=== PATIENT | female | born 1955 | race Caucasian/White ===

== ENCOUNTER 2017-03-08 12:42 | Emergency (ER) | payer OTHER ==
[2017-03-08] MEDS ORDERED: Sodium Chloride 0.9% 10 ML Syringe FLUSH PRN (13:00)
--- NOTE | 2017-03-08 14:05 | EDM.PDOC ---
ED HPI GENERAL MEDICAL PROBLEM - General Chief Complaint: Chest Pain Stated Complaint: CHEST PAIN Time Seen by Provider: 03/08/17 12:54 Source of Information: Reports: Patient History Limitations: Reports: No Limitations - History of Present Illness INITIAL COMMENTS - FREE TEXT/NARRATIVE: The patient presents with left sided chest pain. This started on Sunday. The pain has been coming and going since the. It is sharp and it is made worse with deep breathing. She has no fever, cough, congestion, or runny nose. She has some shortness of breath at times. She has no abdominal pain, nausea or vomiting. She has a history of A-fib and she has a pacemaker. She went to the [place] [facility] and she was sent here for further evaluation. Onset: Gradual Duration: Day(s): (5) Location: Reports: Chest Quality: Reports: Sharp Severity: Moderate Improves with: Reports: None Worsens with: Reports: Breathing Associated Symptoms: Reports: Chest Pain. Denies: Cough, Fever/Chills, Nausea/ Vomiting, Shortness of Breath Chest Pain Score (Numeric/FACES): 9 - Related Data Allergies Allergy/AdvReac Type Severity Reaction Status Date / Time amoxicillin [Amoxicillin] Allergy Rash Verified 08/03/13 13:27 amoxicillin trihydrate Allergy Rash Verified 08/03/13 13:27 [From Augmentin] indomethacin Allergy Indigestion Verified 08/03/13 13:27 nabumetone [From Relafen] Allergy Cannot Verified 08/03/13 13:27 Remember potassium clavulanate Allergy Rash Verified 08/03/13 13:27 [From Augmentin] Sulfa (Sulfonamide Allergy Cannot Verified 08/03/13 13:27 Antibiotics) Remember derma tape/patches Allergy Cannot Uncoded 08/03/13 13:27 Remember Home Meds: Home Meds Esomeprazole [NexIUM] 40 mg PO DAILY 08/03/13 [History] Levothyroxine [Synthroid] 7.5 mcg PO DAILY 08/03/13 [History] Simvastatin [Zocor] 20 mg PO BEDTIME 08/03/13 [History] Venlafaxine [Effexor XR 24 Hr] 75 mg PO DAILY 08/03/13 [History] Cetirizine [ZyrTEC] 10 mg PO DAILY 03/08/17 [History] Cholecalciferol (Vitamin D3) [Vitamin D3] 1 tab PO DAILY 03/08/17 [History] Metoprolol Succinate 50 mg PO DAILY 03/08/17 [History] Mirtazapine 15 mg PO BEDTIME 03/08/17 [History] Mirtazapine 15 mg PO BEDTIME 03/08/17 [History] Rivaroxaban [Xarelto] 20 mg PO DAILY 03/08/17 [History] Topiramate 100 mg PO BID 03/08/17 [History] Venlafaxine [Effexor XR] 150 mg PO ACBREAKFAST 03/08/17 [History] Social & Family History - Family History Family Medical History: Noncontributory - Tobacco Use Smoking Status *Q: Never Smoker Second Hand Smoke Exposure: No - Caffeine Use Caffeine Use: Reports: None - Alcohol Use Days Per Week of Alcohol Use: 0 - Recreational Drug Use Recreational Drug Use: No ED ROS GENERAL - Review of Systems Review Of Systems: See Below Constitutional: Reports: No Symptoms HEENT: Reports: No Symptoms Respiratory: Reports: No Symptoms Cardiovascular: Reports: No Symptoms Endocrine: Reports: No Symptoms GI/Abdominal: Reports: No Symptoms : Reports: No Symptoms Musculoskeletal: Reports: No Symptoms Skin: Reports: No Symptoms ED EXAM, GENERAL - Physical Exam Exam: See Below Exam Limited By: No Limitations General Appearance: Alert, No Apparent Distress Ears: Normal External Exam Nose: Normal Inspection Head: Atraumatic, Normocephalic Neck: Normal Inspection Respiratory/Chest: No Respiratory Distress, Lungs Clear, Normal Breath Sounds Cardiovascular: Regular Rate, Rhythm, No Edema, No Murmur, Other (Pain upon palpation to the left and right chest near both shoulders.) GI/Abdominal: Soft, Non-Tender, No Organomegaly, No Mass Back Exam: Normal Inspection Extremities: Normal Inspection Neurological: Alert, Oriented, No Motor/Sensory Deficits EKG INTERPRETATION EKG Date: 03/08/17 Time: 12:56 Rhythm: Other (Paced rhythm) Rate (Beats/Min): 74 Course - Vital Signs Last Recorded V/S: Last Vital Signs Temp 97.3 F 03/08/17 12:55 Pulse 76 03/08/17 12:55 Resp 16 03/08/17 12:55 BP 130/89 03/08/17 12:55 Pulse Ox 100 03/08/17 12:55 - Orders/Labs/Meds Orders: Active Orders 24 hr Category Date Time Status Cardiac Monitoring [RC] . DIRECTED Care 03/08/17 13:00 Active EKG Documentation Completion [RC] STAT Care 03/08/17 13:00 Active Oxygen Therapy [RC] PRN Care 03/08/17 13:00 Active Peripheral IV Care [RC] . DIRECTED Care 03/08/17 13:00 Active Chest 1V Frontal [CR] Stat Exams 03/08/17 13:00 Taken Sodium Chloride 0.9% [Saline Flush] Med 03/08/17 13:00 Active 10 ml FLUSH ASDIRECTED PRN Peripheral IV Insertion Adult [OM.PC] Stat Oth 03/08/17 13:00 Ordered Medication Orders Sodium Chloride (Saline Flush) 10 ml FLUSH ASDIRECTED PRN PRN Reason: Keep Vein Open Last Admin: 03/08/17 13:18 Dose: 10 ml Labs: Laboratory Tests 03/08/17 03/08/17 03/08/17 Range/Units 13:05 13:05 13:05 WBC 9.84 (3.98-10.04) K/mm3 RBC 5.20 (3.98-5.22) M/mm3 Hgb 15.5 (11.2-15.7) gm/L Hct 46.9 H (34.1-44.9) % MCV 90.2 (79.4-94.8) fl MCH 29.8 (25.6-32.2) pg MCHC 33.0 (32.2-35.5) g/dl RDW Std Deviation 42.8 (36.4-46.3) fL Plt Count 375 H (182-369) K/mm3 MPV 8.8 L (9.4-12.3) fl Neut % (Auto) 60.7 (34.0-71.1) % Lymph % (Auto) 28.5 (19.3-51.7) % [place] % (Auto) 7.7 (4.7-12.5) % Eos % (Auto) 2.3 (0.7-5.8) Baso % (Auto) 0.3 (0.1-1.2) % Neut # (Auto) 5.97 (1.56-6.13) K/mm3 Lymph # (Auto) 2.80 (1.18-3.74) K/mm3 [place] # (Auto) 0.76 H (0.24-0.36) K/mm3 Eos # (Auto) 0.23 (0.04-0.36) K/mm3 Baso # (Auto) 0.03 (0.01-0.08) K/mm3 D-Dimer, Quantitative < 0.19 L (0.19-0.59) mg/L Sodium 144 (136-145) mEq/L Potassium 3.7 (3.5-5.1) mEq/L Chloride 111 H (98-107) mEq/L Carbon Dioxide 20 L (21-32) mEq/L Anion Gap 16.7 H (5-15) BUN 8 (7-18) mg/dL Creatinine 1.2 H (0.55-1.02) mg/dL Est Cr Clr Drug Dosing TNP Estimated GFR (MDRD) 46 (>60) mL/min BUN/Creatinine Ratio 6.7 L (14-18) Glucose 95 (80-115) mg/dL Calcium 9.3 (8.5-10.1) mg/dL Total Bilirubin 0.3 (0.2-1.0) mg/dL AST 26 (15-37) U/L ALT 41 (14-59) U/L Alkaline Phosphatase 76 (46-116) U/L Troponin I < 0.017 (0.00-0.056) ng/mL Total Protein 7.0 (6.4-8.2) g/dl Albumin 3.6 (3.4-5.0) g/dl Globulin 3.4 gm/dL Albumin/Globulin Ratio 1.1 (1-2) Meds: Medications Generic Name Dose Route Start Last Admin Trade Name Freq PRN Reason Stop Dose Admin Sodium Chloride 10 ml 03/08/17 13:00 03/08/17 13:18 Saline Flush FLUSH 10 ml ASDIRECTED PRN Administration Keep Vein Open - Re-Assessments/Exams Free Text/Narrative Re-Assessment/Exam: 03/08/17 14:21 I ordered an IV saline lock, EKG, CXR and labs. Her EKG is paced. Her CXR looks good. Her CBC and CMP look good. Her troponin is negative. This appears to be chest wall pain. She was shoveling when this started a few days ago. Departure - Departure Time of Disposition: 14:25 Disposition: Home, Self-Care 01 Condition: Good Clinical Impression: Chest wall pain Referrals: Marissa Madison DO [Primary Care Provider] - 1 Week Forms: ED Department Discharge Additional Instructions: Take your medicine as prescribed. Take motrin or aleve for pain. Please return if you are worse. - My Orders Last 24 Hours: My Active Orders 03/08/17 13:00 Cardiac Monitoring [RC] . DIRECTED EKG Documentation Completion [RC] STAT Oxygen Therapy [RC] PRN Peripheral IV Care [RC] . DIRECTED Chest 1V Frontal [CR] Stat Sodium Chloride 0.9% [Saline Flush] 10 ml FLUSH ASDIRECTED PRN Peripheral IV Insertion Adult [OM.PC] Stat - Assessment/Plan Last 24 Hours: My Active Orders 03/08/17 13:00 Cardiac Monitoring [RC] . DIRECTED EKG Documentation Completion [RC] STAT Oxygen Therapy [RC] PRN Peripheral IV Care [RC] . DIRECTED Chest 1V Frontal [CR] Stat Sodium Chloride 0.9% [Saline Flush] 10 ml FLUSH ASDIRECTED PRN Peripheral IV Insertion Adult [OM.PC] Stat
--- NOTE | 2017-03-08 16:48 | CR ---
Chest: Portable view of the chest was obtained. Comparison: No prior chest x-ray. Heart size and mediastinum are normal. Lungs are clear. Pacemaker is noted. Bony structures show degenerative endplate spurring within the spine. Impression: 1. Nothing acute is identified on portable chest x-ray. Diagnostic code #2
== END 2017-03-08 14:30 | disposition home or self-care (01) ==
LOC: JD.ED 12:42
DX: R07.89 Other chest pain (principal); Z88.1 Allergy status to other antibiotic agents; Z88.8 Allergy status to other drugs, medicaments and biological substances; Z88.2 Allergy status to sulfonamides; Z79.899 Other long term (current) drug therapy
CPT/HCPCS: 36415; 71045; 80053; 84484; 85025; 85379; 93005; 99285; J7050; 93010; 99284-25

== ENCOUNTER 2017-06-15 21:28 | Emergency (ER) | payer OTHER, MEDICAID ==
--- NOTE | 2017-06-15 22:13 | EDM.PDOC ---
ED HPI GENERAL MEDICAL PROBLEM - General Chief Complaint: ENT Problem Stated Complaint: COLD/CONGESTION/RIGHT EAR BLEEDING Time Seen by Provider: 06/15/17 21:47 Source of Information: Reports: Patient History Limitations: Reports: No Limitations - History of Present Illness INITIAL COMMENTS - FREE TEXT/NARRATIVE: This is a 61-year-old female. She wears hearing aids but she has excellent communication without them. She states for the last couple of weeks she's been having a sore throat and sinus drainage and congestion and a dry cough. She has been hoarse for at least a week. She says that her ears are draining as well she thinks are some blood draining out of her right ear. She has not been wearing her hearing aid for the last 2 days due to the ear pain and drainage. She states she had these similar symptoms about 6 months ago. She does have a history of frequent strep infections. She denies any fever or chills she denies any nausea or vomiting. She has been taking some Robitussin [id number] to help with her cough. Right Ear Pain Score (Numeric/FACES): 4 - Related Data Allergies Allergy/AdvReac Type Severity Reaction Status Date / Time amoxicillin [Amoxicillin] Allergy Rash Verified 06/15/17 21:42 amoxicillin trihydrate Allergy Rash Verified 06/15/17 21:42 [From Augmentin] indomethacin Allergy Indigestion Verified 06/15/17 21:42 nabumetone [From Relafen] Allergy Cannot Verified 06/15/17 21:42 Remember potassium clavulanate Allergy Rash Verified 06/15/17 21:42 [From Augmentin] Sulfa (Sulfonamide Allergy Cannot Verified 06/15/17 21:42 Antibiotics) Remember derma tape/patches Allergy Cannot Uncoded 08/03/13 13:27 Remember Home Meds: Home Meds Esomeprazole [NexIUM] 40 mg PO DAILY 08/03/13 [History] Levothyroxine [Synthroid] 150 mcg PO DAILY 08/03/13 [History] Simvastatin [Zocor] 20 mg PO BEDTIME 08/03/13 [History] Venlafaxine [Effexor XR 24 Hr] 75 mg PO DAILY 08/03/13 [History] Cetirizine [ZyrTEC] 10 mg PO DAILY 03/08/17 [History] Cholecalciferol (Vitamin D3) [Vitamin D3] 1 tab PO DAILY 03/08/17 [History] Metoprolol Succinate 50 mg PO DAILY 03/08/17 [History] Mirtazapine 15 mg PO BEDTIME 03/08/17 [History] Mirtazapine 15 mg PO BEDTIME 03/08/17 [History] Rivaroxaban [Xarelto] 20 mg PO DAILY 03/08/17 [History] Topiramate 100 mg PO BID 03/08/17 [History] Venlafaxine [Effexor XR] 150 mg PO ACBREAKFAST 03/08/17 [History] Azithromycin [IJD: Azithromycin] 250 mg PO QAM #6 tab 06/15/17 [Rx] Codeine/guaiFENesin [guaiFENesin-Codeine Syrup] 10 ml PO Q8H PRN #120 ml [Rx] Hydrocort/Neomycin/Polymyxin B [Egdgywgf-Lcysewvlk-KR Otic Susp] 10 ml EARBOTH TID #1 bottle 06/15/17 [Rx] Past Medical History HEENT History: Reports: Impaired Vision Cardiovascular History: Reports: High Cholesterol, Hypertension, Pacemaker Gastrointestinal History: Reports: GERD Neurological History: Reports: Other (See Below) Other Neuro History: fibromalgia Endocrine/Metabolic History: Reports: Hypothyroidism - Past Surgical History GI Surgical History: Reports: Cholecystectomy Female Surgical History: Reports: Hysterectomy Social & Family History - Family History Family Medical History: Noncontributory - Tobacco Use Smoking Status *Q: Never Smoker Second Hand Smoke Exposure: No - Caffeine Use Caffeine Use: Reports: Coffee - Alcohol Use Days Per Week of Alcohol Use: 0 - Recreational Drug Use Recreational Drug Use: No ED ROS ENT - Review of Systems Review Of Systems: See Below Constitutional: Denies: Fever, Chills HEENT: Reports: Ear Discharge, Ear Pain, Throat Pain, Other (She uses hearing aids) Respiratory: Reports: Cough. Denies: Shortness of Breath, Wheezing, Sputum Cardiovascular: Reports: No Symptoms Endocrine: Reports: No Symptoms GI/Abdominal: Denies: Abdominal Pain, Diarrhea, Nausea, Vomiting : Reports: No Symptoms Musculoskeletal: Reports: No Symptoms Skin: Reports: No Symptoms Neurological: Reports: No Symptoms Psychiatric: Reports: No Symptoms Hematologic/Lymphatic: Reports: No Symptoms ED EXAM, ENT - Physical Exam Exam: See Below Exam Limited By: No Limitations General Appearance: Alert, WD/WN, No Apparent Distress Eye Exam: Bilateral Eye: Normal Inspection Ears: Normal External Exam, Hearing Loss, Other (The right ear canal appears to be mildly inflamed and may be some mild drainage but no blood, the left TM is dull and slightly bulging and the canal appears to be clear with no drainage.). No: Mastoid Swelling, Mastoid Tenderness Nose: Clear Rhinorrhea Mouth/Throat: Normal Inspection, Normal Teeth, Tonsillar Erythema, Other (She has tacky mucous membranes.) Head: Normocephalic Neck: Normal Inspection, Supple. No: Lymphadenopathy (L), Lymphadenopathy (R) Respiratory/Chest: No Respiratory Distress, Lungs Clear, Normal Breath Sounds Cardiovascular: Regular Rate, Rhythm, No Murmur GI/Abdominal: Soft Back: Full Range of Motion Extremities: Normal Inspection, Normal Range of Motion Neurological: Alert, Oriented Psychiatric: Normal Affect, Normal Mood Skin: Warm, Dry Course - Vital Signs Last Recorded V/S: Last Vital Signs Temp 98.2 F 06/15/17 21:39 Pulse 95 06/15/17 21:39 Resp 18 06/15/17 21:39 BP 150/85 H 06/15/17 21:39 Pulse Ox 95 06/15/17 21:39 - Orders/Labs/Meds Orders: Active Orders 24 hr Category Date Time Status CULTURE STREP A CONFIRMATION [RM] Stat Lab 06/15/17 22:02 Results Rapid Strep w/culture conf [STREP SCRN A RAPID W CULT Lab 06/15/17 22:02 Ordered CONF] [RM] Stat cefTRIAXone 1 GM with Lidocaine 1% 2.1 ML IM Med 06/15/17 23:15 Ordered cefTRIAXone [Rocephin] 1 gm Lidocaine 1% [Xylocaine 1%] 2.1 ml IM Q24H - Re-Assessments/Exams Free Text/Narrative Re-Assessment/Exam: 06/15/17 23:10 I spoke to the patient regarding the negative strep screen. We talked at length regarding drinking lots of water and fluids and avoiding sugar with a sore throat. We will give her a Rocephin shot here in the ER and then I'll put her on some antibiotics and eardrops as well as a better cough syrup. She is to follow-up with her family doctor later this week and she understands this. Departure - Departure Time of Disposition: 23:11 Disposition: Home, Self-Care 01 Condition: Fair Clinical Impression: Acute laryngitis Upper respiratory infection Qualifiers: URI type: unspecified URI Qualified Code(s): J06.9 - Acute upper respiratory infection, unspecified Acute bronchitis Qualifiers: Bronchitis organism: unspecified organism Qualified Code(s): J20.9 - Acute bronchitis, unspecified Bilateral serous otitis media Qualifiers: Chronicity: acute Recurrence: not specified as recurrent Qualified Code(s): H65.03 - Acute serous otitis media, bilateral Acute pharyngitis Qualifiers: Pharyngitis/tonsillitis etiology: unspecified etiology Qualified Code(s): J02.9 - Acute pharyngitis, unspecified - Discharge Information Prescriptions: Azithromycin [IJD: Azithromycin] 250 mg PO QAM #6 tab Codeine/guaiFENesin [guaiFENesin-Codeine Syrup] 10 ml PO Q8H PRN #120 ml PRN Reason: Cough Hydrocort/Neomycin/Polymyxin B [Kwsrhjuo-Vcjfkksex-DD Otic Susp] 10 ml EARBOTH TID #1 bottle Referrals: Marissa Madison DO [Primary Care Provider] - Forms: ED Department Discharge Additional Instructions: Start the antibiotics Sunday and taken faithfully daily, use the cough syrup as needed to help to sleep at night time, use the eardrops as prescribed, avoid wearing ear hearing aids for the next 4-5 days or until your ears start feeling better, follow-up your family doctor later this week for recheck, drink lots of water and avoid sugar, return to the ER if needed - My Orders Last 24 Hours: My Active Orders 06/15/17 22:02 CULTURE STREP A CONFIRMATION [] Stat Rapid Strep w/culture conf [STREP SCRN A RAPID W CULT CONF] [] Stat 06/15/17 23:15 cefTRIAXone 1 GM with Lidocaine 1% 2.1 ML IM cefTRIAXone [Rocephin] 1 gm Lidocaine 1% [Xylocaine 1%] 2.1 ml IM Q24H - Assessment/Plan Last 24 Hours: My Active Orders 06/15/17 22:02 CULTURE STREP A CONFIRMATION [] Stat Rapid Strep w/culture conf [STREP SCRN A RAPID W CULT CONF] [] Stat 06/15/17 23:15 cefTRIAXone 1 GM with Lidocaine 1% 2.1 ML IM cefTRIAXone [Rocephin] 1 gm Lidocaine 1% [Xylocaine 1%] 2.1 ml IM Q24H
[2017-06-15] MEDS ORDERED: cefTRIAXone 1 GM, Lidocaine 1% 2.1 ML IM SCH ×2 (23:15)
== END 2017-06-15 23:56 | disposition home or self-care (01) ==
LOC: JD.ED 21:28
DX: J20.9 Acute bronchitis, unspecified (principal); H65.03 Acute serous otitis media, bilateral; J04.0 Acute laryngitis; J02.9 Acute pharyngitis, unspecified; J06.9 Acute upper respiratory infection, unspecified; E78.00 Pure hypercholesterolemia, unspecified; I10 Essential (primary) hypertension; E03.9 Hypothyroidism, unspecified; Z88.1 Allergy status to other antibiotic agents; Z88.2 Allergy status to sulfonamides; Z88.8 Allergy status to other drugs, medicaments and biological substances; Z79.899 Other long term (current) drug therapy
CPT/HCPCS: 87081; 87430; 99283; J0696; 96372

== ENCOUNTER 2020-08-20 19:28 | Emergency (ER) | payer MEDICAID, OTHER ==
--- NOTE | 2020-08-20 20:08 | EDM.PDOC ---
ED HPI GENERAL MEDICAL PROBLEM - General Chief Complaint: Skin Complaint Stated Complaint: CHECK BREAST BIOPSY INCISION Time Seen by Provider: 08/20/20 19:40 Source of Information: Reports: Patient History Limitations: Reports: No Limitations - History of Present Illness INITIAL COMMENTS - FREE TEXT/NARRATIVE: Ms. Davis is a very pleasant 64-year-old woman who now presents to the ED with a concern about her left breast following 2 biopsies performed yesterday, , 08/19/2020, at [facility], following an abnormal ultrasound. The patient is on Xarelto for paroxysmal atrial fibrillation. Her biopsy wound was covered with Steri-Strips and Tegaderm. The patient states that she slept most of the day today, then took a shower this evening. She states that she patted her left breast dry, and noticed some blood on the towel. She also noticed that her left breast appeared to be mildly puffy in the mirror. She denies significant pain. No recent fever. The patient states that she was given postprocedure discharge instructions, however, it is unclear if she has read them, and she did not bring them with her tonight. She states that she will be contacted this coming 08/24/2020, with instructions for follow-up. Here in the ED, the patient's initial BP is found to be mildly elevated at 144/81, otherwise, she is hemodynamically stable, afebrile, saturating 97% on room air. She appears to be anxious and somewhat overwhelmed, although in no acute distress. Other than her left breast tissue, the patient denies having a recent fever, chills, sore throat, ear pain, nasal or sinus congestion, cough, dyspnea, chest pain, palpitations, nausea, vomiting, constipation, diarrhea, abdominal pain, urinary symptoms, recent weight gain or weight loss, recent bloody bowel movements or black bowel movements, recent joint aches, headaches, or rashes. The patient's PCP is Dr. Linda Katz at the [facility]. 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 Her counselor is Veronica King. Left Breast Pain Score (Numeric/FACES): 8 - Related Data Allergies Allergy/AdvReac Type Severity Reaction Status Date / Time amoxicillin [Amoxicillin] Allergy Rash Verified 08/20/20 19:41 amoxicillin trihydrate Allergy Rash Verified 08/20/20 19:41 [From Augmentin] indomethacin Allergy Indigestion Verified 08/20/20 19:41 nabumetone [From Relafen] Allergy Cannot Verified 08/20/20 19:41 Remember potassium clavulanate Allergy Rash Verified 08/20/20 19:41 [From Augmentin] Sulfa (Sulfonamide Allergy Cannot Verified 08/20/20 19:41 Antibiotics) Remember derma tape/patches Allergy Cannot Uncoded 08/20/20 19:41 Remember Home Meds: Home Meds Esomeprazole [NexIUM] 40 mg PO DAILY 08/03/13 [History] Levothyroxine [Synthroid] 150 mcg PO DAILY 08/03/13 [History] Simvastatin [Zocor] 20 mg PO BEDTIME 08/03/13 [History] Venlafaxine [Effexor XR 24 Hr] 75 mg PO DAILY 08/03/13 [History] Cetirizine [ZyrTEC] 10 mg PO DAILY 03/08/17 [History] Cholecalciferol (Vitamin D3) [Vitamin D3] 1 tab PO DAILY 03/08/17 [History] Metoprolol Succinate 50 mg PO DAILY 03/08/17 [History] Mirtazapine 15 mg PO BEDTIME 03/08/17 [History] Mirtazapine 15 mg PO BEDTIME 03/08/17 [History] Rivaroxaban [Xarelto] 20 mg PO DAILY 03/08/17 [History] Topiramate 100 mg PO BID 03/08/17 [History] Venlafaxine [Effexor XR] 150 mg PO ACBREAKFAST 03/08/17 [History] Azithromycin [IJD: Azithromycin] 250 mg PO QAM #6 tab 06/15/17 [Rx] Codeine/guaiFENesin [guaiFENesin-Codeine Syrup] 10 ml PO Q8H PRN #120 ml 06/15/17 [Rx] Hydrocort/Neomycin/Polymyxin B [Jcggetwg-Gozvtzzwg-AH Otic Susp] 10 ml EARBOTH TID #1 bottle 06/15/17 [Rx] Past Medical History HEENT History: Reports: Allergic Rhinitis, Impaired Vision (wears glasses) Cardiovascular History: Reports: Afib (paroxysmal), High Cholesterol, Hypertension Gastrointestinal History: Reports: GERD Psychiatric History: Reports: Depression, Other (See Below) (Fibromyalgia) Endocrine/Metabolic History: Reports: Hypothyroidism, Obesity/BMI 30+ - Infectious Disease History Infectious Disease History: Reports: Chicken Pox, Measles - Past Surgical History HEENT Surgical History: Reports: Adenoidectomy, Oral Surgery (dental extractions) Cardiovascular Surgical History: Reports: Pacer GI Surgical History: Reports: Cholecystectomy (1995), Other (See Below) (Exploratory laparotomy) Female Surgical History: Reports: Hysterectomy (complete) Musculoskeletal Surgical History: Reports: Arthroscopic Knee (right, x 3) Oncologic Surgical History: Reports: Biopsy of Breast (left, 08/19/2020) Social & Family History - Tobacco Use Tobacco Use Status *Q: Never Tobacco User - Caffeine Use Caffeine Use: Reports: Coffee - Alcohol Use Alcohol Use History: Yes Alcohol Use Frequency: Rarely - Recreational Drug Use Recreational Drug Use: Yes Drug Use in Last 12 Months: No Recreational Drug Type: Reports: Marijuana/Hashish (last ate 1977) - Living Situation & Occupation Living situation: Reports: , Alone Occupation: Unemployed ED ROS GENERAL - Review of Systems Review Of Systems: Comprehensive ROS is negative, except as noted in HPI. ED EXAM, SKIN/RASH Exam: See Below Exam Limited By: No Limitations General Appearance: Alert, WD/WN, Anxious Respiratory/Chest: Other (There is a square piece of Tegaderm overlying a star shaped arrangement of Steri-Strips to the inferior aspect of the left breast, about a centimeter or 2 to the left of midline. There is a small amount of dark dried blood in the center of the Steri-Strips. No erythema or swelling underneath the T) Course - Vital Signs Last Recorded V/S: Last Vital Signs Temp 36.1 C 08/20/20 19:35 Pulse 65 08/20/20 19:35 Resp 20 08/20/20 19:35 BP 144/81 H 08/20/20 19:35 Pulse Ox 97 08/20/20 19:35 - Re-Assessments/Exams Free Text/Narrative Re-Assessment/Exam: 08/20/20 20:05 As above, the patient underwent 2 left breast biopsies yesterday, while she is on Xarelto. She showered this evening, then noticed some blood on the towel as she dabbed her left breast dry. She became frightened because she felt that the left breast looked to be somewhat swollen. On examination, there is a single piece of Tegaderm overlying a star pattern of Steri-Strips just lateral to the inferior aspect of her left breast, with a small amount of dark dried blood in the center of the Steri-Strips. No other visible blood elsewhere. No erythema or swelling to the skin under the Tegaderm. There is ecchymosis to the midline inferior aspect of the breast, at the area of greatest dependency. I explained to the patient that the ecchymosis is likely due to extravasation of blood from the biopsy, and that she would expect to have a bit more bleeding than someone not on an anticoagulant. I explained that the blood in the tissue can cause some local swelling, which is normal, and nothing to be afraid of. Going forward, I recommended that she simply follow her discharge instructions. Departure - Departure Time of Disposition: 20:08 Disposition: Home, Self-Care 01 Condition: Good Clinical Impression: S/P breast biopsy, left - Discharge Information *PRESCRIPTION DRUG MONITORING PROGRAM REVIEWED*: Not Applicable *COPY OF PRESCRIPTION DRUG MONITORING REPORT IN PATIENT IAN: Not Applicable Instructions: Breast Biopsy Referrals: Linda Katz MD [Primary Care Provider] - Forms: ED Department Discharge Additional Instructions: You were seen in the emergency room after discovering some blood on the towel following a left breast biopsy yesterday, along with concern about some swelling of the left breast. On examination, the Steri-Strips and Tegaderm appear to be in proper position, with no concern of bleeding. As explained, you would expect to have an increased amount of blood in the tissue from the biopsy since you are on the blood thinner Xarelto, and blood in the tissue can cause some swelling, therefore local puffiness of your left breast is to be expected. Going forward, we recommend that you simply follow your post-biopsy discharge instructions. If any other problems, please do not hesitate to return to the ER. Sepsis Event Note (ED) - Evaluation Sepsis Screening Result: No Definite Risk - Focused Exam Vital Signs: Vital Signs Temp Pulse Resp BP Pulse Ox 08/20/20 19:35 36.1 C 65 20 144/81 H 97
== END 2020-08-20 20:28 | disposition home or self-care (01) ==
LOC: JD.ED 19:28
DX: N64.9 Disorder of breast, unspecified (principal); Z98.890 Other specified postprocedural states
CPT/HCPCS: 99282; 99283

== ENCOUNTER 2020-09-16 09:37 | Emergency (ER) | payer MEDICAID, OTHER ==
[2020-09-16] MEDS ORDERED: Sodium Chloride 0.9% 10 ML Syringe FLUSH PRN (09:56)
--- NOTE | 2020-09-16 10:23 | EDM.PDOC ---
ED HPI GENERAL MEDICAL PROBLEM - General Chief Complaint: Trauma Stated Complaint: FALL/MULTIPLE INJURIES Time Seen by Provider: 09/16/20 09:49 Source of Information: Reports: Patient History Limitations: Reports: No Limitations - History of Present Illness INITIAL COMMENTS - FREE TEXT/NARRATIVE: The patient presents after a fall. She was in her bathtub this morning and she slipped and fell. She did hit her head and hurt her neck. She is on Xarelto. She had no LOC. She has a headache, neck pain, chest pain, left forearm pain, right upper arm pain, right hip pain, right lower leg pain and left thigh pain. She has no abdominal pain, nausea or vomiting. Onset: Sudden Duration: Minutes: Location: Reports: Head, Neck, Chest, Upper Extremity, Left, Upper Extremity, Right, Lower Extremity, Left, Lower Extremity, Right Quality: Reports: Sharp Severity: Moderate Improves with: Reports: None Worsens with: Reports: None Associated Symptoms: Reports: Chest Pain, Headaches. Denies: Cough, Fever/Chills, Nausea/Vomiting, Shortness of Breath Left Face/Facial Pain Score (Numeric/FACES): 7 - Related Data Allergies Allergy/AdvReac Type Severity Reaction Status Date / Time amoxicillin [Amoxicillin] Allergy Rash Verified 09/16/20 09:51 amoxicillin trihydrate Allergy Rash Verified 09/16/20 09:51 [From Augmentin] nabumetone [From Relafen] Allergy Cannot Verified 09/16/20 09:51 Remember potassium clavulanate Allergy Rash Verified 09/16/20 09:51 [From Augmentin] Sulfa (Sulfonamide Allergy Cannot Verified 09/16/20 09:51 Antibiotics) Remember indomethacin AdvReac Indigestion Verified 09/16/20 09:51 derma tape/patches Allergy Cannot Uncoded 08/20/20 19:41 Remember Home Meds: Home Meds Esomeprazole [NexIUM] 20 mg PO DAILY 08/03/13 [History] Levothyroxine [Synthroid] 100 mcg PO DAILY 08/03/13 [History] Simvastatin [Zocor] 20 mg PO BEDTIME 08/03/13 [History] Cetirizine [ZyrTEC] 10 mg PO DAILY 03/08/17 [History] Cholecalciferol (Vitamin D3) [Vitamin D3] 0.5 tab PO DAILY 03/08/17 [History] Metoprolol Succinate 50 mg PO DAILY 03/08/17 [History] Rivaroxaban [Xarelto] 20 mg PO DAILY 03/08/17 [History] Topiramate 50 mg PO BID 03/08/17 [History] Acetaminophen [Tylenol] 325 mg PO DAILY 09/16/20 [History] DULoxetine HCl [Cymbalta] 30 mg PO BEDTIME 09/16/20 [History] Diclofenac Sodium [Diclo Gel] 2 gm TP QID PRN 09/16/20 [History] Eszopiclone 2 mg PO BEDTIME 09/16/20 [History] traMADol [Ultram] 50 - 100 mg PO Q6H PRN #20 tab 09/16/20 [Rx] Past Medical History HEENT History: Reports: Allergic Rhinitis, Impaired Vision Other HEENT History: wears eyeglasses. 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: Neurological History: Reports: Migraines, Other (See Below) Other Neuro History: fibromalgia Psychiatric History: Reports: Depression, Other (See Below) Endocrine/Metabolic History: Reports: Hypothyroidism, Obesity/BMI 30+ - Infectious Disease History Infectious Disease History: Reports: Chicken Pox, Measles - Past Surgical History HEENT Surgical History: Reports: Adenoidectomy, Oral Surgery Cardiovascular Surgical History: Reports: Pacer GI Surgical History: Reports: Cholecystectomy, Other (See Below) Female Surgical History: Reports: Hysterectomy Musculoskeletal Surgical History: Reports: Arthroscopic Knee Oncologic Surgical History: Reports: Biopsy of Breast Social & Family History - Family History Family Medical History: No Pertinent Family History - Tobacco Use Tobacco Use Status *Q: Never Tobacco User - Caffeine Use Caffeine Use: Reports: Coffee - Recreational Drug Use Recreational Drug Use: No - Living Situation & Occupation Living situation: Reports: , Alone Occupation: Unemployed Review of Systems - Review of Systems Review Of Systems: See Below Constitutional: Reports: No Symptoms Eyes: Reports: No Symptoms Ears: Reports: No Symptoms Nose: Reports: No Symptoms Mouth/Throat: Reports: No Symptoms Respiratory: Reports: No Symptoms Cardiovascular: Reports: Chest Pain GI/Abdominal: Reports: No Symptoms Genitourinary: Reports: No Symptoms Musculoskeletal: Reports: Neck Pain, Other (arm and leg pain) Neurological: Reports: Headache ED EXAM, GENERAL - Physical Exam Exam: See Below Exam Limited By: No Limitations General Appearance: Alert, No Apparent Distress Head: Other (abrasion to the left face) Neck: Tender Midline Respiratory/Chest: No Respiratory Distress, Lungs Clear, Normal Breath Sounds Cardiovascular: Regular Rate, Rhythm, No Edema, No Murmur GI/Abdominal: Soft, Non-Tender, No Organomegaly Back Exam: Normal Inspection Extremities: Other (pain upon palpation to the right upper arm and good sensation and pulses distally. Pain upon palpation with a small abrasion to the left forearm with good sensation and pulses distally. Pain upon palpation to the right hip and right lower leg with an abrasio to the right lower leg CMS) Neurological: Alert, Oriented, No Motor/Sensory Deficits Course - Vital Signs Last Recorded V/S: Last Vital Signs Temp 98.5 F 09/16/20 09:52 Pulse 61 09/16/20 09:52 Resp 16 09/16/20 09:52 BP 146/80 H 09/16/20 09:52 Pulse Ox 100 09/16/20 09:52 - Orders/Labs/Meds Orders: Active Orders 24 hr Category Date Time Status Cardiac Monitoring [RC] . DIRECTED Care 09/16/20 09:56 Active Peripheral IV Care [RC] . DIRECTED Care 09/16/20 09:56 Active Femur Min 2V Lt [CR] Stat Exams 09/16/20 09:55 Ordered Hip Min 2V or 3V Rt [CR] Stat Exams 09/16/20 09:55 Ordered Tibia Fibula Rt [CR] Stat Exams 09/16/20 09:55 Ordered Ketorolac [Toradol] Med 09/16/20 11:37 Once 30 mg IM ONETIME ONE Sodium Chloride 0.9% [Saline Flush] Med 09/16/20 09:56 Active 10 ml FLUSH ASDIRECTED PRN Peripheral IV Insertion Adult [OM.PC] Stat Oth 09/16/20 09:56 Ordered Medication Orders Sodium Chloride (Sodium Chloride 0.9% 10 Ml Syringe) 10 ml FLUSH ASDIRECTED PRN PRN Reason: Keep Vein Open Labs: Laboratory Tests 09/16/20 09/16/20 09/16/20 Range/Units 10:00 10:00 10:00 WBC 9.21 (3.98-10.04) K/mm3 RBC 5.27 H (3.98-5.22) M/mm3 Hgb 15.9 H (11.2-15.7) gm/dl Hct 48.0 H (34.1-44.9) % MCV 91.1 (79.4-94.8) fl MCH 30.2 (25.6-32.2) pg MCHC 33.1 (32.2-35.5) g/dl RDW Std Deviation 43.5 (36.4-46.3) fL Plt Count 347 (182-369) K/mm3 MPV 8.8 L (9.4-12.3) fl Neut % (Auto) 64.7 (34.0-71.1) % Lymph % (Auto) 26.9 (19.3-51.7) % Dodge % (Auto) 5.4 (4.7-12.5) % Eos % (Auto) 2.3 (0.7-5.8) Baso % (Auto) 0.3 (0.1-1.2) % Neut # (Auto) 5.95 (1.56-6.13) K/mm3 Lymph # (Auto) 2.48 (1.18-3.74) K/mm3 Dodge # (Auto) 0.50 H (0.24-0.36) K/mm3 Eos # (Auto) 0.21 (0.04-0.36) K/mm3 Baso # (Auto) 0.03 (0.01-0.08) K/mm3 PT 11.1 (9.7-12.0) SECONDS INR 1.04 APTT 34.2 H (21.7-31.4) SECONDS Sodium 144 (136-145) mEq/L Potassium 3.6 (3.5-5.1) mEq/L Chloride 108 H (98-107) mEq/L Carbon Dioxide 23 (21-32) mEq/L Anion Gap 16.6 H (5-15) BUN 11 (7-18) mg/dL Creatinine 1.4 H (0.55-1.02) mg/dL Est Cr Clr Drug Dosing 38.00 mL/min Estimated GFR (MDRD) 38 (>60) mL/min BUN/Creatinine Ratio 7.9 L (14-18) Glucose 164 H (70-99) mg/dL Calcium 9.2 (8.5-10.1) mg/dL Total Bilirubin 0.4 (0.2-1.0) mg/dL AST 20 (15-37) U/L ALT 31 (14-59) U/L Alkaline Phosphatase 63 (46-116) U/L Total Protein 7.1 (6.4-8.2) g/dl Albumin 3.8 (3.4-5.0) g/dl Globulin 3.3 gm/dL Albumin/Globulin Ratio 1.2 (1-2) Meds: Medications Generic Name Dose Route Start Last Admin Trade Name Freq PRN Reason Stop Dose Admin Sodium Chloride 10 ml 09/16/20 09:56 Sodium Chloride 0.9% 10 Ml Syringe FLUSH ASDIRECTED PRN Keep Vein Open - Re-Assessments/Exams Free Text/Narrative Re-Assessment/Exam: 09/16/20 10:23 I ordered an IV saline lock, CT of her head, cervical spine, maxillofacial bones, and x-rays of her right humerus, left forearm, right hip with pelvis, right tib/fib and left forearm. 09/16/20 11:38 Her creatinine was elevated slightly at 1.4. Her CTs all look good. Her x-rays shows nothing acute. I will give her a shot for pain. Departure - Departure Time of Disposition: 11:40 Disposition: Home, Self-Care 01 Condition: Good Clinical Impression: Fall Qualifiers: Encounter type: initial encounter Qualified Code(s): W19.XXXA - Unspecified fall, initial encounter Abrasion of face Qualifiers: Encounter type: initial encounter Qualified Code(s): S00.81XA - Abrasion of ot her part of head, initial encounter Abrasion of leg Qualifiers: Encounter type: initial encounter Laterality: right Qualified Code(s): S80.811A - Abrasion, right lower leg, initial encounter Head injury Qualifiers: Encounter type: initial encounter Qualified Code(s): S09.90XA - Unspecified injury of head, initial encounter Cervical strain, acute Qualifiers: Encounter type: initial encounter Qualified Code(s): S16.1XXA - Strain of muscle, fascia and tendon at neck level, initial encounter - Discharge Information *PRESCRIPTION DRUG MONITORING PROGRAM REVIEWED*: Not Applicable *COPY OF PRESCRIPTION DRUG MONITORING REPORT IN PATIENT IAN: Not Applicable Prescriptions: traMADol [Ultram] 50 - 100 mg PO Q6H PRN #20 tab PRN Reason: Pain Referrals: Linda Katz MD [Primary Care Provider] - 1 Week Forms: ED Department Discharge Additional Instructions: Clean the abrasions with warm soapy water 2 times per day and apply antibiotic ointment after. Do that for about 4 to 5 days. Take tylenol or motrin as needed for any pain. If that does not help, try the ultram. Ice the areas that hurt for 15 minutes 3 times per day for 3 days. Follow up with your provider within a week. Please return if you are worse. Sepsis Event Note (ED) - Evaluation Sepsis Screening Result: No Definite Risk - Focused Exam Vital Signs: Vital Signs Temp Pulse Resp BP Pulse Ox 09/16/20 09:52 98.5 F 61 16 146/80 H 100 - My Orders Last 24 Hours: My Active Orders 09/16/20 09:55 Femur Min 2V Lt [CR] Stat Hip Min 2V or 3V Rt [CR] Stat Tibia Fibula Rt [CR] Stat 09/16/20 09:56 Cardiac Monitoring [RC] . DIRECTED Peripheral IV Care [RC] . DIRECTED Sodium Chloride 0.9% [Saline Flush] 10 ml FLUSH ASDIRECTED PRN Peripheral IV Insertion Adult [OM.PC] Stat 09/16/20 11:37 Ketorolac [Toradol] 30 mg IM ONETIME ONE - Assessment/Plan Last 24 Hours: My Active Orders 09/16/20 09:55 Femur Min 2V Lt [CR] Stat Hip Min 2V or 3V Rt [CR] Stat Tibia Fibula Rt [CR] Stat 09/16/20 09:56 Cardiac Monitoring [RC] . DIRECTED Peripheral IV Care [RC] . DIRECTED Sodium Chloride 0.9% [Saline Flush] 10 ml FLUSH ASDIRECTED PRN Peripheral IV Insertion Adult [OM.PC] Stat 09/16/20 11:37 Ketorolac [Toradol] 30 mg IM ONETIME ONE
--- NOTE | 2020-09-16 10:40 | CT ---
Head CT Technique: Multiple axial sections through the brain were obtained. Intravenous contrast was not utilized. Reconstructed coronal and sagittal images were obtained. Comparison: Prior head CT study of 10/29/13. Findings: Ventricles along with basal cisterns and sulci over the convexities are slightly prominent. No abnormal parenchymal densities are seen. No evidence of intracranial hemorrhage is seen. No midline shift or mass-effect is seen. Bone window settings were reviewed which show no acute abnormality within the visualized paranasal sinuses or mastoid sinuses. No acute intracranial abnormality is seen. Impression: 1. Mild generalized atrophy. 2. No acute intracranial abnormality is appreciated. Diagnostic code #2
--- NOTE | 2020-09-16 10:41 | CT ---
CT facial bones Technique: Multiple axial sections were obtained through the facial bones. Reconstructed coronal and sagittal images were obtained. Comparison: No prior facial bone study is available. Findings: Paranasal sinuses are clear with no acute findings. Mastoid sinuses are clear. No acute facial bone fracture is seen. Impression: 1. Nothing acute is seen on CT study of the facial bones. Diagnostic code #1
--- NOTE | 2020-09-16 10:41 | CT ---
CT cervical spine Technique: Multiple axial sections were obtained through the cervical spine from about C1 inferiorly to the top of T3. Reconstructed coronal and sagittal images were obtained. Comparison: Prior cervical spine study of 08/11/12. Findings: Degenerative change is noted between the dens and anterior arch of C1. Disc space narrowing is seen at C2-3 which appears to be developmental. Mild disc space narrowing is noted at C5-6 and C6-7. No bony central or bony neural foraminal stenosis is seen. Apophyseal joint shows mild degenerative change. No acute fracture or subluxation is seen. Impression: 1. Mild degenerative change. 2. Nothing acute is appreciated on CT study of the cervical spine. Diagnostic code #2
--- NOTE | 2020-09-16 11:00 | CR ---
Right humerus: 2 views of the right humerus were obtained. Comparison: No prior right humerus study, previous right shoulder exam of 08/03/13. Humerus shows no fracture. Lucent line is seen within the scapula. No additional abnormality is seen. Impression: 1. Nothing acute is seen within the right humerus. 2. Lucency within the scapula most likely representing flat plane but please correlate that patient has no symptoms to the scapula. Diagnostic code #3
--- NOTE | 2020-09-16 11:05 | CR ---
Left forearm: 2 views of the left forearm were obtained. Comparison: No prior forearm study is available. No acute fracture or other bony abnormality is seen. Impression: 1. Nothing acute is seen on 2 view left forearm study. Diagnostic code #1
--- NOTE | 2020-09-16 11:05 | CR ---
Chest: Supine view of the chest was obtained. Comparison: Prior chest x-ray of 03/08/17. Heart size and mediastinum are normal. Lungs are clear with no acute parenchymal change. Bichamber pacemaker is noted. Spine shows mild scoliosis with scattered disc space narrowing and endplate spurring. No acute osseous abnormality is appreciated. Surgical clips are seen from prior cholecystectomy. Impression: 1. Nothing acute is seen on supine chest x-ray. 2. Other findings believed to be incidental as noted above. Diagnostic code #2
[2020-09-16] MEDS ORDERED: Ketorolac 30 MG/ML SDV IM ONE (11:37)
--- NOTE | 2020-09-16 11:52 | CR ---
Right tibia and fibula: 2 views of the right tibia and fibula were obtained. No discrete fracture or other bony abnormality is appreciated. Impression: 1. Nothing acute is seen on 2 view right tibia and fibula study. Diagnostic code #1
--- NOTE | 2020-09-16 11:52 | CR ---
Left femur: 2 views of the left femur were obtained. Comparison: No prior femur studies available. Mild joint space narrowing is seen within the knee. Joint space and left hip appear to be fairly well preserved. No acute fracture or other bony abnormality is appreciated. Impression: 1. Slight degenerative change within the left knee. 2. Nothing acute is appreciated on left femur exam. Diagnostic code #2
--- NOTE | 2020-09-16 11:53 | CR ---
Right hip: AP and frog leg lateral views of the right hip were obtained. Comparison: No prior right hip study is available. Joint space within the right hip is preserved. Mild degenerative change is seen within the visualized right sacroiliac joint. No acute fracture or other bony abnormality is seen. Impression: 1. Nothing acute is seen on 2 view right hip exam. 2. Mild degenerative change as noted above. Diagnostic code #2
== END 2020-09-16 12:07 | disposition home or self-care (01) ==
LOC: JD.ED 09:37
DX: S16.1XXA Strain of muscle, fascia and tendon at neck level, initial encounter (principal); S80.811A Abrasion, right lower leg, initial encounter; S00.81XA Abrasion of other part of head, initial encounter; S50.812A Abrasion of left forearm, initial encounter; M25.551 Pain in right hip; M79.621 Pain in right upper arm; R74.8 Abnormal levels of other serum enzymes; I48.91 Unspecified atrial fibrillation; Z88.0 Allergy status to penicillin; E78.00 Pure hypercholesterolemia, unspecified; I10 Essential (primary) hypertension; K21.9 Gastro-esophageal reflux disease without esophagitis; E03.9 Hypothyroidism, unspecified; E66.9 Obesity, unspecified; Z68.37 Body mass index [BMI] 37.0-37.9, adult; Z88.1 Allergy status to other antibiotic agents; Z88.8 Allergy status to other drugs, medicaments and biological substances; Z88.2 Allergy status to sulfonamides; Z88.6 Allergy status to analgesic agent; Z91.048 Other nonmedicinal substance allergy status; Z79.01 Long term (current) use of anticoagulants; Z79.899 Other long term (current) drug therapy; W01.198A Fall on same level from slipping, tripping and stumbling with subsequent striking against other object, initial encounter
CPT/HCPCS: 36415; 70450; 70450-26; 70486; 70486-26; 71045; 71045-26; 72125; 72125-26; 73060-26-RT; 73060-RT; 73090-26-LT; 73090-LT; 73502-26-RT; 73502-RT; 73552-26-LT; 73552-LT; 73590-26-RT; 73590-RT; 80053; 85025; 85610; 85730; 99284; 99284-25

== ENCOUNTER 2021-12-14 18:56 | Emergency (ER) | payer MEDICAID, OTHER | END 2021-12-14 19:54 | disposition home or self-care (01) | LOC: JD.ED 18:56 | DX: Z48.89 Encounter for other specified surgical aftercare (principal); Z88.0 Allergy status to penicillin; Z88.8 Allergy status to other drugs, medicaments and biological substances; Z88.2 Allergy status to sulfonamides; Z91.048 Other nonmedicinal substance allergy status; Z79.899 Other long term (current) drug therapy | CPT/HCPCS: 99282 ==

== ENCOUNTER 2023-06-18 14:17 | Emergency (ER) | payer MEDICAID, OTHER ==
[2023-06-18 14:55] LABS: BASOPHILS PERCENT AUTO 0.6 % (0.0-1.0); EOSINOPHILS PERCENT AUTO 0.4 % (0.0-6.0); HEMATOCRIT 48.6 % (37.0-47.0); HEMOGLOBIN 16.5 gm/dl (12.0-16.0); IMMATURE GRAN ABSOLUTE AUTO 0.03 K/mm3 (0.00-0.05); IMMATURE GRAN PERCENT AUTO 0.6 % (0.0-0.4); LYMPHOCYTES ABSOLUTE AUTO 2.6 K/mm3 (1.0-4.8); LYMPHOCYTES PERCENT AUTO 48.8 % (24.0-44.0); MEAN CORPUSCULAR HEMOGLOBIN 29.8 pg (28.0-32.0); MEAN CORPUSCULAR VOLUME 87.7 fl (83.0-99.0); MEAN PLATELET VOLUME 9.1 fl (9.4-12.3); MONOCYTES ABSOLUTE AUTO 0.7 K/mm3 (0.0-0.8); MONOCYTES PERCENT AUTO 13.3 % (0.0-8.0); NEUTROPHILS ABSOLUTE AUTO 1.9 K/mm3 (1.8-7.7); NEUTROPHILS PERCENT AUTO 36.3 % (41.0-71.0); PLATELET COUNT,PLT 304 K/mm3 (150-400); RED BLOOD CELL COUNT 5.54 M/mm3 (4.10-5.30); WHITE BLOOD CELL COUNT,WBC 5.33 K/mm3 (3.9-11.3)
[2023-06-18 15:30] LABS: A/G RATIO 0.9 (1-2); ALBUMIN 3.3 g/dl (3.4-5.0); ANION GAP 14.8 (5-15); BILIRUBIN TOTAL 0.5 mg/dL (0.2-1.0); BUN/CREATININE RATIO 5.3 (14-18); CALCIUM 9.9 mg/dL (8.5-10.1); CREATININE 1.5 mg/dL (0.55-1.02); EST CRCL DRUG DOSING (CG) 34.07 mL/min; PROTEIN TOTAL,TP 6.8 g/dl (6.4-8.2); TSH 1.792 uIU/mL (0.358-3.74)
[2023-06-18 15:44] LABS: POTASSIUM,K 3.8 mEq/L (3.5-5.1)
== END 2023-06-18 18:51 ==
LOC: JD.ED 14:17
DX: U07.1 COVID-19 (principal); T82.9XXA Unspecified complication of cardiac and vascular prosthetic device, implant and graft, initial encounter; E78.00 Pure hypercholesterolemia, unspecified; I10 Essential (primary) hypertension; I48.91 Unspecified atrial fibrillation; K21.9 Gastro-esophageal reflux disease without esophagitis; E03.9 Hypothyroidism, unspecified; E66.9 Obesity, unspecified; Z79.02 Long term (current) use of antithrombotics/antiplatelets; Z79.899 Other long term (current) drug therapy; Z88.8 Allergy status to other drugs, medicaments and biological substances; Z91.048 Other nonmedicinal substance allergy status; Z88.2 Allergy status to sulfonamides; Z88.1 Allergy status to other antibiotic agents
CPT/HCPCS: 36415; 71046; 71046-26; 80053; 83880; 84443; 84484; 85025; 93005; 99285